=== PATIENT | female | born 1980 | race American Indian/Alaskan Native ===

== ENCOUNTER 2017-09-10 00:03 | Emergency (ER) | payer MEDICAID ==
[2017-09-10 00:32] VITALS: BP 109/65
[2017-09-10] MEDS ORDERED: TYLENOL PO ONE (01:35)
[2017-09-10 01:55] LABS: Basophils # (Auto) 0.1 K/mm3 (0.0-0.1); Basophils % (Auto) 0.6 % (0.0-1.8); Eosinophils # (Auto) 0.2 K/mm3 (0.0-0.4); Eosinophils % (Auto) 1.9 % (0.0-4.3); Hematocrit 42.8 % (30.3-42.9); Hemoglobin 15.1 gm/dl (10.1-14.3); Lymphocytes # (Auto) 2.9 K/mm3 (1.2-5.4); Lymphocytes % (Auto) 27.4 % (13.4-35.0); Mean Corpuscular HGB Conc 35 % (30-34); Mean Corpuscular Hemoglobin 31 pg (28-32); Mean Corpuscular Volume 88 fl (79-97); Monocytes # (Auto) 0.7 K/mm3 (0.0-0.8); Monocytes % (Auto) 6.4 % (0.0-7.3); Platelet Count 291 K/mm3 (140-440); Red Blood Count 4.87 M/mm3 (3.65-5.03); Red Cell Distribution Width 12.9 % (13.2-15.2)
[2017-09-10 02:12] LABS: BUN/Creatinine Ratio 14; Blood Urea Nitrogen 10 mg/dL (7-17); Calcium 9.1 mg/dL (8.4-10.2); Hemolysis Index 4
== END 2017-09-10 01:44 | disposition left against medical advice (07) ==
LOC: ED 00:03
DX: R51 Headache (principal); Z53.21 Procedure and treatment not carried out due to patient leaving prior to being seen by health care provider
CPT/HCPCS: 36415; 80048; 84484; 84702; 85025; 93005; 93010

== ENCOUNTER 2017-10-05 20:53 | Emergency (ER) | payer MEDICAID ==
[2017-10-05 22:03] LABS: Basophils # (Auto) 0.1 K/mm3 (0.0-0.1); Basophils % (Auto) 0.5 % (0.0-1.8); Eosinophils # (Auto) 0.2 K/mm3 (0.0-0.4); Eosinophils % (Auto) 1.4 % (0.0-4.3); Hematocrit 40.3 % (30.3-42.9); Lymphocytes # (Auto) 2.6 K/mm3 (1.2-5.4); Lymphocytes % (Auto) 22.3 % (13.4-35.0); Mean Corpuscular HGB Conc 35 % (30-34); Mean Corpuscular Hemoglobin 30 pg (28-32); Mean Corpuscular Volume 87 fl (79-97); Monocytes # (Auto) 0.8 K/mm3 (0.0-0.8); Monocytes % (Auto) 6.7 % (0.0-7.3); Platelet Count 314 K/mm3 (140-440); Red Blood Count 4.61 M/mm3 (3.65-5.03); Red Cell Distribution Width 12.9 % (13.2-15.2)
[2017-10-05 22:34] LABS: Alanine Aminotransferase 11 units/L (7-56); Albumin 3.6 g/dL (3.9-5); BUN/Creatinine Ratio 10; Blood Urea Nitrogen 7 mg/dL (7-17); Calcium 9.1 mg/dL (8.4-10.2); Hemolysis Index 0
[2017-10-05 23:28] LABS: Bilirubin,Urine NEG (Negative); Blood,Urine NEG (Negative); Color,Urine Yellow (Yellow); Mucus,Urine FEW /HPF; Protein,Urine <15 mg/dL mg/dL (Negative); Urobilinogen,Urine < 2.0 mg/dL (<2.0)
[2017-10-05] MEDS ORDERED: NACL 0.9% 1000 ML 1,000 ML IV ONE (23:40)
[2017-10-05] MEDS ORDERED: DILAUDID IV ONE (23:40)
[2017-10-05] MEDS ORDERED: ZOFRAN IV ONE (23:40)
--- NOTE | 2017-10-06 01:01 | Ultrasound Report ---
FINAL REPORT EXAM: US OB TRANSVAGINAL HISTORY: increased vag bleed, last US no heart tones TECHNIQUE: Transvaginal imaging was obtained of the pelvis including Doppler interrogation of the adnexa. FINDINGS: The uterus is anteverted measuring 11.4 cm x 6.7 cm x 6.3 cm. There is thickening of the endometrial stripe measuring 23.0 mm. The endometrium has a heterogeneous appearance extending into the endocervical canal. Retained products of conception is suspected. An intact gestational sac is not identified. Free fluid is not seen. Both ovaries are appropriate size contour and echotexture with right ovary revealing benign follicle. The right ovary measures 3.5 cm x 1.8 cm x 2.1 cm. The left ovary measures 2.2 cm x 1.7 cm x 1.7 cm. IMPRESSION: Abnormally thickened endometrium with heterogeneous echotexture extending to the cervix. The findings are suspicious for retained products of conception. No evidence of an intact IUP or ectopic . Normal-appearing ovaries. No evidence of free fluid.
[2017-10-06] MEDS ORDERED: NACL 0.9% 1000 ML 1,000 ML IV ONE (01:48)
--- NOTE | 2017-10-06 01:48 | Emergency Department Report ---
<GHADA HOOKS - Last Filed: 10/06/17 01:46> ED HPI - General Chief complaint: Vaginal Bleeding Stated complaint: VAG BLEED, ABD PAIN 10 WEEKS Time Seen by Provider: 10/05/17 23:14 Source: patient Mode of arrival: Ambulatory Limitations: No Limitations - History of Present Illness Initial comments: Patient is a 37-year-old [place] female who is presenting with vaginal bleeding. Patient states that she is partially 10 weeks and vaginal bleeding that is worsening. Patient was seen at her [employer]'s office slight cycle yesterday had an ultrasound that showed that there was no longer any heart tones. Patient states that she is having some lower abdominal cramping that is 10 out of 10 in severity. Patient states that she is changing her pad 3-4 times an hour. Patient states that his clots. Patient denies any fevers chills nausea vomiting at this time. - Related Data Previous Rx's Medication Instructions Recorded Last Taken Type HYDROcodone/APAP 5-325 [Brandon 1 each PO Q6HR PRN #10 tablet 10/06/17 Unknown Rx 5/325] Misoprostol 400 mcg PO Q4HR #4 tablet 10/06/17 Unknown Rx Multivitamin with Iron 1 each PO DAILY #30 tablet 10/06/17 Unknown Rx [Multivitamins with Iron] Ondansetron [Zofran Odt] 4 mg PO Q8HR #20 tab.rapdis 10/06/17 Unknown Rx Allergies Allergy/AdvReac Type Severity Reaction Status Date / Time No Known Allergies Allergy Verified 09/10/17 05:52 ED Review of Systems ROS: Stated complaint: VAG BLEED, ABD PAIN 10 WEEKS Other details as noted in HPI Comment: All other systems reviewed and negative ED Past Medical Hx - Past Medical History Previous Medical History?: Yes Hx Diabetes: Yes Hx GERD: Yes - Surgical History Past Surgical History?: Yes Additional Surgical History: D&C - Social History Smoking Status: Never Smoker Substance Use Type: None - Medications Home Medications: Home Medications Medication Instructions Recorded Confirmed Last Taken Type HYDROcodone/APAP 5-325 [Brandon 1 each PO Q6HR PRN #10 tablet 10/06/17 Unknown Rx 5/325] Misoprostol 400 mcg PO Q4HR #4 tablet 10/06/17 Unknown Rx Multivitamin with Iron 1 each PO DAILY #30 tablet 10/06/17 Unknown Rx [Multivitamins with Iron] Ondansetron [Zofran Odt] 4 mg PO Q8HR #20 tab.rapdis 10/06/17 Unknown Rx ED Physical Exam - General Limitations: No Limitations General appearance: alert, in no apparent distress - Head Head exam: Present: atraumatic, normocephalic - Eye Eye exam: Present: normal appearance - ENT ENT exam: Present: mucous membranes moist - Neck Neck exam: Present: normal inspection - Respiratory Respiratory exam: Present: normal lung sounds bilaterally. Absent: respiratory distress, wheezes, rales, rhonchi - Cardiovascular Cardiovascular Exam: Present: regular rate, normal rhythm. Absent: systolic murmur, diastolic murmur, rubs, gallop - GI/Abdominal GI/Abdominal exam: Present: soft, tenderness (suprapubic), normal bowel sounds - Extremities Exam Extremities exam: Present: normal inspection - Back Exam Back exam: Present: normal inspection - Neurological Exam Neurological exam: Present: alert, oriented X3 - Psychiatric Psychiatric exam: Present: normal affect, normal mood - Skin Skin exam: Present: warm, dry, intact, normal color. Absent: rash ED Course Vital Signs 10/05/17 10/05/17 10/06/17 21:18 23:13 00:40 Temperature 98.8 F Pulse Rate 85 68 Respiratory 16 18 18 Rate Blood Pressure 119/85 Blood Pressure 119/79 [Left] O2 Sat by Pulse 98 100 98 Oximetry ED Medical Decision Making - Lab Data Result diagrams: 10/05/17 21:51 10/05/17 21:51 - Radiology Data FINAL REPORT EXAM: US OB TRANSVAGINAL HISTORY: increased vag bleed, last US no heart tones TECHNIQUE: Transvaginal imaging was obtained of the pelvis including Doppler interrogation of the adnexa. FINDINGS: The uterus is anteverted measuring 11.4 cm x 6.7 cm x 6.3 cm. There is thickening of the endometrial stripe measuring 23.0 mm. The endometrium has a heterogeneous appearance extending into the endocervical canal. Retained products of conception is suspected. An intact gestational sac is not identified. Free fluid is not seen. Both ovaries are appropriate size contour and echotexture with right ovary revealing benign follicle. The right ovary measures 3.5 cm x 1.8 cm x 2.1 cm. The left ovary measures 2.2 cm x 1.7 cm x 1.7 cm. IMPRESSION: Abnormally thickened endometrium with heterogeneous echotexture extending to the cervix. The findings are suspicious for retained products of conception. No evidence of an intact IUP or ectopic . Normal-appearing ovaries. No evidence of free fluid. Critical care attestation.: If time is entered above; I have spent that time in minutes in the direct care of this critically ill patient, excluding procedure time. ED Disposition Clinical Impression: Incomplete Disposition: - TO HOME OR SELFCARE Condition: Stable Instructions: Spontaneous Miscarriage (ED) Additional Instructions: follow the instructions given to you by Dr Rankin and take the misoprostol as prescribed Prescriptions: HYDROcodone/APAP 5-325 [Brandon 5/325] 1 each PO Q6HR PRN #10 tablet PRN Reason: Pain Misoprostol 400 mcg PO Q4HR #4 tablet Multivitamin with Iron [Multivitamins with Iron] 1 each PO DAILY #30 tablet Ondansetron [Zofran Odt] 4 mg PO Q8HR #20 tab.rapdis Referrals: LEXI MARTEL MD [Primary Care Provider] - 3-5 Days Forms: Work/School Release Form(ED) Print Language: MAORI <CODY RENTERIA - Last Filed: 10/06/17 03:46> ED Medical Decision Making - Lab Data Result diagrams: 10/05/17 21:51 10/05/17 21:51 - Medical Decision Making took over the care of the patient from Dr Hooks.The patient was seen By Dr Rankin - obstertrician and he came to examine her and says the bleeding is slowing down and he suggested that the patient can be discharged and he will give the patient a prescription for cytotec. he initially asked me to give 400mcg of cytotec rectally. ED Disposition Is pt being admited?: No Does the pt Need Aspirin: No Time of Disposition: 03:28
--- NOTE | 2017-10-06 02:19 | Ultrasound Report ---
FINAL REPORT PROCEDURE: US OB < = 14 WEEKS FETUS TECHNIQUE: Real-time transabdominal sonography in multiple planes of pelvis was performed with image documentation. This examination was performed with limited Doppler evaluation. CPT 20204 HISTORY: Increased vaginal bleeding. COMPARISON: Please refer to transvaginal report dated same day and time. FINDINGS: LMP: 07/28/2017. Clinical age: 10 weeks. EDC: 05/04/2018. UTERUS Size: 11.4 x 6.7 x 6.3 cm. Endometrial thickness: 23 mm. Endometrium is heterogeneous and extends into the endocervical canal. Orientation: anteverted. Cervix: Normal. Fibroids/masses: None. RIGHT Ovary: 3.5 x 1.8 x 2.1 cm. Appearance: Normal flow. LEFT Ovary: 2.2 x 1.7 x 1.7 cm. Appearance: Herm[place] flow. Pelvic fluid: None. Other: None. IMPRESSION: Endometrium is heterogeneous and thickened and extends in to the endocervical canal. No sonographic sign of intrauterine . Although findings could be possibly related to very early intrauterine that is not sonographically apparent, also concerning for possible retained products of conception. Without definite intrauterine and normal appearing ovaries/adnexa, ectopic felt to be unlikely. Recommend clinical correlation, correlation with beta HCG, and short-term followup pelvic ultrasound.
[2017-10-06] MEDS ORDERED: CYTOTEC VG ONE (02:40)
[2017-10-06] MEDS ORDERED: CYTOTEC PR ONE (03:00)
--- NOTE | 2017-10-06 03:21 | Short Stay Summary ---
Short Stay Documentation Date of service: 10/06/17 Narrative H&P: C/O: Retained products 37-year-old presents for the above complaints and issues. Essential history this patient with known IUP at ~ 7 weeks in [facility] yesterday and diagnosed with missed AB. She spontaneously passed products of conception at about 8 PM today and started to bleed soon after, she presented to ED and I am called to see her. Sonogram was relatively unremarkable except showing retained products. Patient's vitals have been stable. On seeing the patient, her bleeding appears to have slowed down remarkably. Her pad worn soon after her ultrasound is lightly stained and I can see no active bleeding on her perineum. ABD:soft Pelvic:No active bleeding noted A: Retained products P: -As patient is hemodynamically stable with limited bleeding noted at this time, we'll manage conservatively at this time. -400 micrograms misoprostol NH at this time then 400mg every 4 hrs x 2 more doses -Used to returns to to the ER if her bleeding increases and exceed soaking 1 pad per hour -Otherwise, we will see her in clinic on Sunday -The patient requests pain pills for her "cramping", she claims she was given Percocet previously and this was unhelpful. Have told her I cannot prescribe Percocet but will provide [place] at this time. - History Past Medical History: diabetes Past Surgical History: Other (Prior D&C x 2 (last was in 2007)) Social history: single, full code, no smoking - Allergies and Medications Current Medications: Allergies No Known Allergies Allergy (Verified 09/10/17 05:52) Home Medications Medication Instructions Recorded Confirmed Last Taken Type No Known Home Medications [No 09/10/17 09/10/17 Unknown History Reported Home Medications] - Physical exam General appearance: no acute distress, obese Lungs: Clear to auscultation, Normal air movement Breasts: deferred Heart: Regular rate, Normal S1, Normal S2 Gastrointestinal: normal, normoactive bowel sounds, no tenderness, no distended , no guarding Female Genitourinary: normal Extremities: no ischemia - Disposition Condition at discharge: Stable Disposition: DC-01 TO HOME OR SELFCARE - Discharge Diagnoses (1) Retained products of conception Status: Acute (2) Missed with demise before 20 completed weeks of gestation Status: Acute Short Stay Discharge Plan Additional Instructions: follow the instructions Follow up with: LEXI MARTEL MD [Primary Care Provider] - 3-5 Days Prescriptions: HYDROcodone/APAP 5-325 [[place] 5/325] 1 each PO Q6HR PRN #10 tablet PRN Reason: Pain Misoprostol 400 mcg PO Q4HR #4 tablet Multivitamin with Iron [Multivitamins with Iron] 1 each PO DAILY #30 tablet
[2017-10-06 03:52] VITALS: BP 138/72
== END 2017-10-06 03:51 | disposition home or self-care (01) ==
LOC: ED 20:53
DX: O03.4 Incomplete spontaneous abortion without complication (principal); Z3A.10 10 weeks gestation of pregnancy; E11.9 Type 2 diabetes mellitus without complications; K21.9 Gastro-esophageal reflux disease without esophagitis
CPT/HCPCS: 36415; 76801; 76817; 80053; 81001; 84702; 85025; 86850; 86900; 86901; 96361; 96374; 96375; 99284; J1170; J2405; J7030